=== PATIENT | male | born 1970 | race African-American/Black ===

== ENCOUNTER 2017-08-19 13:57 | Observation (INO) | payer OTHER ==
[~2017-08-19] VITALS: Ht 167.6 cm; Wt 65.5 kg
[~2017-08-19 13:57] MED LIST: ATARAX,VISTARIL50 MG PO; BACTRIM,SEPT1 TABLET PO; BACTROBAN OINTM22 GM TP; BENADRYL ALLERG25 MG PO; COLACE100 MG PO; FLEXERIL10 MG PO; KEFLEX500 MG PO; MEN'S MULTI-VI1 EACH PO; NAPROSYN500 MG PO; NORCO 5/3251 TABLET PO; PERCOCET 5/31 TABLET PO; PREDNISONE50 MG PO; RISPERIDONE1 MG PO; VITAMIN D-3 401 EACH PO
[2017-08-19 14:26] LABS: HEMATOCRIT 39.5 % (38.0-50.0); HEMOGLOBIN 13.6 G/DL (12.5-16.6); MCH 31.2 PG (29.0-34.0); MCHC 34.4 G/DL (30.0-36.0); MCV 90.6 FL (86-99); PLATELET COUNT 170 K/uL (156-360); RBC DIS.WIDTH-CV 13.2 % (11.8-14.6); RBC DIS.WIDTH-SD 44.2 % (39-53); RED BLOOD COUNT 4.36 M/uL (4.00-5.50)
[2017-08-19 14:36] LABS: CHLORIDE 105 mEq/L (99-109); POTASSIUM 4.3 mEq/L (3.7-5.4); SODIUM 141 mEq/L (136-147)
[2017-08-19 14:37] LABS: GLUCOSE 96 mg/dL (70-99)
[2017-08-19 14:41] LABS: GFR ESTIMATE (CALCULATED) > 59 mL/min/ (58.99-99999)
[2017-08-19 14:42] LABS: UREA NITROGEN (BUN) 14 mg/dL (9-23)
[2017-08-19 14:46] LABS: TROP-I INTERPRETATION NEGATIVE; TROPONIN-I < 0.01 ng/mL (0.0-0.30)
[2017-08-19 15:23] LABS: SERUM ETHYL ALCOHOL < 10 mg/dL
[2017-08-19 18:48] VITALS: BP 104/69
[2017-08-19 21:39] LABS: TROP-I INTERPRETATION NEGATIVE; TROPONIN-I < 0.01 ng/mL (0.0-0.30)
[2017-08-19 23:47] VITALS: BP 94/63
[2017-08-20 02:16] LABS: BENZODIAZEPINES, URINE SCREEN Negative (200 ng/mL)
[2017-08-20 03:44] LABS: TROP-I INTERPRETATION NEGATIVE; TROPONIN-I < 0.01 ng/mL (0.0-0.30)
[2017-08-20 04:21] VITALS: BP 114/66
[2017-08-20 07:35] VITALS: BP 95/56
[2017-08-20 12:00] VITALS: BP 94/58
== END 2017-08-20 13:10 | disposition home or self-care (01) ==
LOC: EME 13:57 → EDOF 16:51 → ENRESERV 16:54 → 4SOUTH 18:45
PROVIDERS: Emergency Medicine; Family Medicine
DX: F14.10 Cocaine abuse, uncomplicated (principal); R07.9 Chest pain, unspecified; R45.851 Suicidal ideations; R94.31 Abnormal electrocardiogram [ECG] [EKG]
CPT/HCPCS: 71045; 80048; 80306 90; 84484; 85027; 93005; 99281; 99285; G0378; G0480; J1650; J7030

== ENCOUNTER 2017-10-25 11:15 | Emergency (ER) | payer OTHER ==
[~2017-10-25] VITALS: Ht 167.6 cm; Wt 68.1 kg
[2017-10-25] MEDS ORDERED: FLEXERIL10 MG PO (14:27)
[2017-10-25 14:40] VITALS: BP 97/63
== END 2017-10-25 14:40 | disposition home or self-care (01) ==
LOC: EME 11:15
DX: M54.12 Radiculopathy, cervical region (principal)
CPT/HCPCS: 72040; 99281; 99284; J1885